=== PATIENT | female | born 1930 | race Caucasian/White ===

== ENCOUNTER 2018-02-11 19:53 | Emergency (ER) | payer OTHER, MEDICARE ==
[2018-02-11 20:20] LABS: BILIRUBIN,URINE SMALL (NEG); CLARITY,URINE CLOUDY; COLOR,URINE YELLOW; GLUCOSE,URINE NEGATIVE (NEG); NITRITE,URINE NEGATIVE (NEG); PROTEIN,URINE NEGATIVE (NEG-TRACE); UROBILINOGEN,URINE 0.2 mg/dL (0.2 mg/dL)
[2018-02-11 20:26] LABS: RBC,URINE OCC /HPF (0-2); WBC,URINE TNTC /HPF (0-4)
[2018-02-11 20:27] LABS: AMORPHOUS SEDIMENT,UR PRESENT /HPF; BACTERIA,URINE MOD /HPF (0-FEW); HYALINE CASTS, URINE MODERATE /HPF; SQUAMOUS EPITHELIAL CELL,UR FEW /LPF
[2018-02-11 20:34] LABS: BASO # 0.1 x10^3/uL (0.0-0.2); BASO % 1 % (0-3); EOS % 0 % (0-3); LYMPH # 5.4 x10^3/uL (1.0-4.8); LYMPH % 29 % (24-48); MEAN CORPUSCULAR HEMOGLOBIN 31 pg (25-35); MEAN CORPUSCULAR HGB CONC 33 g/dL (31-37); MEAN CORPUSCULAR VOLUME 95 fL (79-100); MONO # 1.3 x10^3/uL (0.0-1.1); MONO % 7 % (0-9); NEUT # 11.9 x10^3uL (1.8-7.7); NEUT % 63 % (31-73); PLATELET COUNT 237 x10^3/uL (140-400); RED BLOOD COUNT 1.76 x10^6/uL (3.50-5.40); RED CELL DISTRIBUTION WIDTH 15.3 % (11.5-14.5); WHITE BLOOD COUNT 18.8 x10^3/uL (4.0-11.0)
[2018-02-11 20:41] LABS: ADD MAN DIFF? YES; HEMATOCRIT 16.7 % (36.0-47.0); HEMOGLOBIN 5.5 g/dL (12.0-15.5)
[2018-02-11] MEDS: IV NORMAL SALINE 500ML BAG 500 ML IV (20:45)
[2018-02-11 20:51] LABS: ALBUMIN 2.5 g/dL (3.4-5.0); ALK PHOS 225 U/L (46-116); ALT (SGPT) 29 U/L (14-59); ANION GAP 19 (6-14); AST (SGOT) 496 U/L (15-37); BLOOD UREA NITROGEN 83 mg/dL (7-20); CALCIUM 9.1 mg/dL (8.5-10.1); CARBON DIOXIDE 15 mmol/L (21-32); CHLORIDE 99 mmol/L (98-107); CREATININE 2.8 mg/dL (0.6-1.0); DIRECT BILIRUBIN 0.2 mg/dL (0.0-0.2); GFR 15.9; GLUCOSE 392 mg/dL (70-99); SODIUM 133 mmol/L (136-145); TOTAL BILIRUBIN 0.8 mg/dL (0.2-1.0); TOTAL PROTEIN 6.2 g/dL (6.4-8.2)
[2018-02-11 20:56] LABS: POTASSIUM 8.2 mmol/L (3.5-5.1)
[2018-02-11 20:57] LABS: TROPONINI 0.057 ng/mL (0.000-0.055)
[2018-02-11 20:58] LABS: PARTIAL THROMBOPLASTIN TIME 97 SEC (24-38)
[2018-02-11 21:09] LABS: INR > 15.0 (0.8-1.1); PROTHROMBIN TIME PATIENT > 120.0 SEC (11.7-14.0)
[2018-02-11 21:10] LABS: LACTIC ACID 10.1 mmol/L (0.4-2.0)
[2018-02-11] MEDS: CALCIUM GLUCONATE 1,000 MG/10 ML VIAL. IVP (21:13)
[2018-02-11 21:14] LABS: MAGNESIUM 2.1 mg/dL (1.8-2.4)
[2018-02-11] MEDS ORDERED: DEXTROSE 50% 25 GM / 50ML DISP.SYRIN. IV (21:15)
[2018-02-11] MEDS ORDERED: INSULIN REGULAR 100 UNIT/ML 3ML VIAL. IV (21:15)
[2018-02-11 21:19] LABS: % BANDS 2 % (0-9); % BASOS 1 % (0-3); % LYMPHS 27 % (24-48); % METAS 1 % (0-0); % MONOS 5 % (0-10); % MYELOS 1 % (0-0); % SEGS 63 % (35-66); ANISOCYTOSIS MOD; NUCLEATED RBC 4; PLT ESTIMATE ADEQUATE (ADEQUATE); POIKILOCYTOSIS SLIGHT; POLYCHROMASIA SLIGHT
[2018-02-11 21:20] LABS: SCHISTOCYTES OCC; TOXIC GRANULATION SLIGHT
== END 2018-02-11 23:05 | disposition expired ==
LOC: ER 19:53
DX: R41.82 Altered mental status, unspecified (principal); E78.00 Pure hypercholesterolemia, unspecified; E11.9 Type 2 diabetes mellitus without complications; I48.91 Unspecified atrial fibrillation; K21.9 Gastro-esophageal reflux disease without esophagitis; I10 Essential (primary) hypertension; I25.10 Atherosclerotic heart disease of native coronary artery without angina pectoris; Z88.8 Allergy status to other drugs, medicaments and biological substances
CPT/HCPCS: 36415; 71045; 80048; 80076; 81001; 83605; 83735; 84484; 85007; 85025; 85610; 85730; 87040; 87086; 93005; 96361; 96374; 99285-25; J0610; J7040